=== PATIENT | female | born 1975 | race Caucasian/White ===

== ENCOUNTER 2016-03-23 09:44 | Emergency (ER) | payer BC ==
[2016-03-23 10:16] LABS: Hematocrit 39.2 % (37.0-47.0); Hemoglobin 13.7 gm/dL (12.5-16.0); Mean Cell Volume 87.3 fl (78-100); Mean Corpuscular Hemoglobin 30.5 pg (27-31); Mean Corpuscular Hgb Conc 34.9 g/dl (32-36); Mean Platelet Volume 8.9 fl (6.0-9.5); Neutrophil # 5.5 K/mm3 (1.3-6.0); Neutrophil % 60.7 % (42-75.0); Platelet Count 270 K/mm3 (150-450); Red Blood Count 4.49 M/mm3 (4.2-5.4); Red Cell Distribution Width 12.1 % (11.5-14.0)
[2016-03-23 10:31] LABS: Anion Gap 14.4 mmol/L (6.8-13.8); BUN/Creatinine Ratio 17.3 (9.0-21.6); Bilirubin, Total 0.2 mg/dL (0.0-1.1); Ca. Corrected For Albumin 8.6 mg/dL (8.4-10.2); Calcium * 8.9 mg/dL (7.9-10.9); Carbon Dioxide 25.6 mmol/L (24-32.6); Total Protein 7.5 gm/dL (6.2-8.2)
[2016-03-23] MEDS ORDERED: KETOROLAC TROMETHAMINE 30 MG/ML VIAL IV ONE (10:33)
[2016-03-23] MEDS ORDERED: ONDANSETRON HCL/PF 2 MG/ML VIAL IV ONE (10:33)
[2016-03-23] MEDS ORDERED: NORMAL SALINE 1,000 ML IV ONE (10:33)
[2016-03-23] MEDS ORDERED: KETOROLAC TROMETHAMINE 30 MG/ML VIAL ONE (10:41)
[2016-03-23] MEDS ORDERED: ONDANSETRON HCL/PF 2 MG/ML VIAL ONE (10:41)
[2016-03-23 10:52] LABS: Urine Bilirubin Negative (NEGATIVE); Urine Blood Negative /ul (NEGATIVE); Urine Ketone Negative (NEGATIVE); Urine Nitrite Negative (NEGATIVE); Urine Protein Negative (NEGATIVE); Urine Specific Gravity 1.025 SP.GR. (1.005-1.010); Urine Urobilinogen Normal (NORMAL)
[2016-03-23 10:58] LABS: Urine Appearance Clear; Urine Bacteria TRACE; Urine Color Yellow; Urine RBC None Seen /hpf (0-5); Urine WBC 0-5 /hpf (0-5)
[2016-03-23] MEDS ORDERED: DIATRIZOATE MEGLU/DIATRIZO SOD 30 ML BTL ONE (11:38)
[2016-03-23] MEDS ORDERED: DIATRIZOATE MEGLU/DIATRIZO SOD 30 ML BTL PO ONE (11:41)
--- NOTE | 2016-03-23 11:42 | ERNOTE ---
Abdominal HPI - Narrative Date of Service: 03/23/16 - General Chief Complaint: Abdominal Pain Time Seen by Provider: 03/23/16 10:14 Source: patient, family, RN notes reviewed Exam Limitations: no limitations - Immun/Allergies/Home Medications Allergies/Adverse Reactions: Allergies codeine Allergy (Intermediate, Verified 03/23/16 09:58) Hives Home Medications: HOME MEDICATIONS Sertraline HCl [Zoloft] 50 mg PO DAILY 03/23/16 [Last Taken Unknown] - History of Present Illness Narrative: Margarita is a 40 year old female ambulatory to the ED with her for right lower quadrant abdominal pain that began on February 27. The pain has been intermittent, but became constant and much worse around 0800 today. She initially thought the pain may be d/t "female problems" and saw her Enforcement Safety Officer last week. She had a pelvic US that was unremarkable. She has irregular menses and had a Mirena placed approximately 5 months ago in hopes to control the issue. It has not improved. Timing: getting worse, intermittent Quality: severe, burning Activities at Onset: none Modifying Factors - (Worsens): Present: breathing, movement Associated Symptoms: Present: nausea. Absent: back pain, chest pain, fever/ chills, vomiting, loss of appetite Prior Abdominal Problems: Present: none Prior Treatment: Present: recently seen, treated by physician Review of Systems - Review of Systems Constitutional: Absent: recent illness, fever, chills EYE: Present: no symptoms reported ENT: Present: no symptoms reported Respiratory: Absent: shortness of breath, cough Cardiology: Absent: chest pain, syncope Gastrointestinal/Abdominal: Present: nausea, abdominal pain. Absent: vomiting, diarrhea, constipation, eating less, drinking less Genitourinary: Absent: frequency, dysuria, hematuria Musculoskeletal: Absent: back pain, muscle pain Skin: Present: no symptoms reported Neurological: Absent: headache, dizziness/light-headedness Endocrine: Present: no symptoms reported Hematologic/Lymphatic: Present: no symptoms reported Psych: Present: no symptoms reported - Patient's Past Medical History Patient History - Medical: No pertinent hx Patient History - Cardiac/Respiratory: No pertinent hx Patient History - Cancer: No Hx of Cancer Patient History - Surgical Procedures: Tubal Ligation, T & A, Other LMP (Calendar): 02/24/16 - Social History Living Situations: home Smoking Status: Former smoker Alcohol Use: occasionally Drug Use: none Physical Exam - Physical Exam General Appearance: Present: wd/wn, alert, mild distress, other - appropriately dressed and groomed, appears uncomfortable Neck: Present: normal inspection, nontender, supple Respiratory: Present: no respiratory distress, normal breath sounds, no accessory muscle use, chest nontender, lungs clear Cardiovascular/Chest: Present: regular rate, rhythm, no murmur Gastrointestinal/Abdominal: Present: normal bowel sounds, soft, tenderness - right mid and lower abdomen, distended - mildly. Absent: rebound, McBurney sign , Beck sign, mass Back Exam: Present: normal inspection, no CVA tenderness Neurological Exam: Present: alert, oriented, normal mood/affect Skin Exam: Present: normal color, warm/dry ED Progress - Results and Orders Patient's Lab Results:: I have reviewed the patient's lab results. - Vital Signs Patient's Vital Signs:: I have reviewed the patient's vital signs. Vital Signs: Vital Signs 03/23/16 09:52 Temperature 36.5 C Pulse Rate 94 Respiratory 12 Rate Blood Pressure 121/65 O2 Sat by Pulse 96 Oximetry - CT/Ultrasound CT/Ultrasound Narrative: CT abdomen/pelvis with contrast: IMPRESSION: 1. No CT signs of acute appendicitis. 2. Distal/terminal ileal bowel wall thickening as discussed above. Correlate clinically for ileitis. Consider infection versus inflammatory bowel disease. 3. Diverticular disease of the descending and sigmoid colon. Questionable bowel wall thickening and adjacent inflammatory changes in the sigmoid colon. Consider diverticulitis or colitis. Potential underlying colonic mass to be difficult to exclude. Consider clinical and imaging follow-up (colonoscopy versus contrast enema) of the colon after resolution of the patient's acute symptoms. 4. Small fat-containing umbilical hernia. 5. Urinary bladder wall thickening suggested. Consider cystitis. 6. New small subcentimeter low-density lesion in the spleen, which is of unknown clinical significance. Probably benign but consider follow-up imaging (routine splenic ultrasound). 7. Additional comments the details are as above. - Progress/Reassessment Chief Complaint: Abdominal Pain Progress:: Improved Progress Note-Subjective: 03/23/16 11:30 Verbalizes improvement in pain after Toradol. Lab/urine unremarkable. CT ordered. Plan - Plan Plan: Labwork unremarkable, no focal findings on CT that could be causing symptoms aside from stool retention and dilation of the cecum. Discussed with patient - acute symptoms will likely resolve with diarrhea caused by CT contrast. Recommended Miralax and fiber for maintenance. Departure - Departure Clinical Impression: Abdominal pain in female patient Disposition: Home Follow Up Needed Condition: Fair Instructions: Constipation, Adult, [id number] Additional Instructions: Start Miralax daily - titrate as needed Increase water and fiber intake - a fiber supplement may also be helpful Follow up with your PCP for ongoing problems but return to ER if you become worse Referrals: Coretta Rios DO [Primary Care Provider] -
[2016-03-23] MEDS ORDERED: MORPHINE SULFATE 2 MG/ML DISP.SYRIN ONE (14:02)
[2016-03-23] MEDS ORDERED: MORPHINE SULFATE 2 MG/ML DISP.SYRIN IV ONE (14:04)
[2016-03-23 14:41] VITALS: BP 128/79
[2016-03-23] MEDS ORDERED: MORPHINE SULFATE 4 MG/ML SYRG IV ONE (14:52)
[2016-03-23] MEDS ORDERED: MORPHINE SULFATE 4 MG/ML SYRG ONE (14:54)
== END 2016-03-23 15:15 | disposition home or self-care (01) ==
LOC: ER 09:44
DX: K59.00 Constipation, unspecified (principal); Z87.891 Personal history of nicotine dependence